=== PATIENT | female | born 1965 | race Caucasian/White ===

== ENCOUNTER → 2024-07-21 16:33 | Outpatient (REF) | payer BC, SELFPAY | LOC: HWRAD 16:33 | PROVIDERS: ATTENDING PHYSICIAN Internal Medicine | DX: R05.3 Chronic cough (principal) | CPT/HCPCS: 71046 ==

== ENCOUNTER → 2024-08-07 08:17 | Outpatient (REF) | payer BC, SELFPAY | LOC: HWRAD 08:17 | PROVIDERS: ATTENDING PHYSICIAN Internal Medicine | DX: Z87.891 Personal history of nicotine dependence (principal) | CPT/HCPCS: 71271 ==

== ENCOUNTER → 2024-08-14 13:36 | Outpatient (REF) | payer BC, SELFPAY | LOC: RAD 13:36 | PROVIDERS: ATTENDING PHYSICIAN Internal Medicine | DX: S91.309A Unspecified open wound, unspecified foot, initial encounter (principal) | CPT/HCPCS: 93922; 93925 ==